=== PATIENT | female | born 1990 | race Caucasian/White ===

== ENCOUNTER 2017-07-12 12:16 | Outpatient (CLI) | payer BC, OTHER | END 2017-07-12 12:17 | disposition home or self-care (01) | LOC: BICRAD 12:16 | PROVIDERS: ATTEND Family Medicine | DX: M53.3 Sacrococcygeal disorders, not elsewhere classified (principal); G89.29 Other chronic pain | CPT/HCPCS: 72100; 72220 ==

== ENCOUNTER 2022-05-26 10:02 | Day surgery (SDC) | payer BC ==
[2022-05-24 14:44] VITALS: BMI 26.6
[2022-05-26] MEDS ORDERED: Oxymetazoline HCl 0.05% (30 ML BOT) ONE ×2 (11:41→11:45)
[2022-05-26] MEDS ORDERED: Famotidine/PF 20 mg/2ml Vial ONE (11:44)
[2022-05-26] MEDS ORDERED: fentaNYL PF 100 MCG/2 ML SYRINGE ONE (11:44)
[2022-05-26] MEDS ORDERED: EPINEPHrine 1 MG/ML AMP ONE (11:45)
[2022-05-26] MEDS ORDERED: Bacitracin Zinc Ointment 30 gm TUBE ONE (11:45)
[2022-05-26] MEDS ORDERED: Lidocaine 1% (PF) 30 ML VIAL ONE (11:45)
[2022-05-26 12:07] LABS: Hemoglobin 15.7 g/dL (12.0-16.0)
[2022-05-26] MEDS ORDERED: Midazolam HCl 2 mg/2 ml Vial ONE (12:14)
[2022-05-26] MEDS ORDERED: Lidocaine 1% PF 5 ML VIAL ONE (12:47)
[2022-05-26] MEDS ORDERED: PROPOFOL 200 MG/20 ML VIAL ONE (12:47)
[2022-05-26] MEDS ORDERED: Glycopyrrolate 0.2 MG/ML 5 ML SYRINGE ONE (12:47)
[2022-05-26] MEDS ORDERED: Dexamethasone 20 MG/5 ML VIAL ONE (12:47)
[2022-05-26] MEDS ORDERED: Ondansetron PF 4 MG/2 ML Vial ONE ×2 (12:47→13:59)
[2022-05-26] MEDS ORDERED: NEOSTIGMINE 3 MG/3 ML SYR 3 MG/3 ML SYRINGE ONE (12:47)
[2022-05-26] MEDS ORDERED: Rocuronium Bromide 10 MG/ML (10ML VIAL) ONE (12:47)
[2022-05-26] MEDS ORDERED: Fentanyl 100 MCG/2 ML VIAL ONE (13:52)
[2022-05-26] MEDS ORDERED: HYDROcodone/Acetaminophen 5/325 mg Tablet ONE (14:42)
== END 2022-05-26 15:51 | disposition home or self-care (01) ==
LOC: SDC 10:02
PROVIDERS: ATTEND Specialist
PROC: 099W8ZZ Drainage of Right Sphenoid Sinus, Via Natural or Artificial Opening Endoscopic (ICD-10-PCS; principal; 2022-05-26)
PROC: 09TU8ZZ Resection of Right Ethmoid Sinus, Via Natural or Artificial Opening Endoscopic (ICD-10-PCS; principal; 2022-05-26)
PROC: 099T8ZZ Drainage of Left Frontal Sinus, Via Natural or Artificial Opening Endoscopic (ICD-10-PCS; principal; 2022-05-26)
PROC: 099X8ZZ Drainage of Left Sphenoid Sinus, Via Natural or Artificial Opening Endoscopic (ICD-10-PCS; principal; 2022-05-26)
PROC: 09TV8ZZ Resection of Left Ethmoid Sinus, Via Natural or Artificial Opening Endoscopic (ICD-10-PCS; principal; 2022-05-26)
PROC: 09BQ8ZZ Excision of Right Maxillary Sinus, Via Natural or Artificial Opening Endoscopic (ICD-10-PCS; principal; 2022-05-26)
PROC: 09SL8ZZ Reposition Nasal Turbinate, Via Natural or Artificial Opening Endoscopic (ICD-10-PCS; principal; 2022-05-26)
PROC: 09SM0ZZ Reposition Nasal Septum, Open Approach (ICD-10-PCS; principal; 2022-05-26)
PROC: 09BR8ZZ Excision of Left Maxillary Sinus, Via Natural or Artificial Opening Endoscopic (ICD-10-PCS; principal; 2022-05-26)
PROC: 099S8ZZ Drainage of Right Frontal Sinus, Via Natural or Artificial Opening Endoscopic (ICD-10-PCS; principal; 2022-05-26)
DX: J32.4 Chronic pansinusitis (principal); J34.2 Deviated nasal septum; J34.3 Hypertrophy of nasal turbinates; G89.29 Other chronic pain; R51.9 Headache, unspecified; Z86.16 Personal history of COVID-19
CPT/HCPCS: 85014; 85018; J0171; J1100; J2001; J2250; J2405; J2704; J3010; S0028